=== PATIENT | female | born 1955 | race Caucasian/White ===

== ENCOUNTER → 2018-09-17 18:09 | Outpatient (CLI) | payer OTHER, SELFPAY ==
[2018-09-17 18:38] LABS: Basophils # 0.1 K/mm3 (0-0.2); Basophils % 1.1 % (0.1-2.0); Eosinophils # 0.1 K/mm3 (0.0-0.4); Eosinophils % 1.8 % (0.1-12.0); Hematocrit 49.5 % (37.0-47.0); Hemoglobin 16.1 g/dL (12.2-16.2); Lymphocytes # 2.1 K/mm3 (0.7-4.5); Lymphocytes % 32.6 % (10-50); Mean Corpuscular HGB Conc 32.5 g/dL (31.8-35.4); Mean Corpuscular Volume 98.4 fl (81-99); Mean Platelet Volume 8.2 fl (7.4-10.4); Monocytes # 0.4 K/mm3 (0.1-1.0); Monocytes % 5.4 % (1.7-9.3); Neutrophils # 3.8 K/mm3 (1.8-7.8); Neutrophils % 59.1 % (37.0-80.0); Platelet Count 216 K/mm3 (142-424); Red Blood Count 5.02 M/mm3 (4.20-5.40); Red Cell Distribution Width 12.7 % (11.5-17.5); White Blood Count 6.5 K/mm3 (4.8-10.8)
[2018-09-17 20:04] LABS: Alanine Aminotransferase 15 U/L (12-78); Albumin/Globulin Ratio 1.4 (1.1-1.8); Alkaline Phosphatase 79 U/L (46-116); Anion Gap 13.4 mEq/L (5-15); Aspartate Amino Transferase 11 U/L (15-37); Bilirubin,Total 0.5 mg/dL (0.2-1.0); Blood Urea Nitrogen 8 mg/dL (7-18); Calcium 9.2 mg/dL (8.5-10.1); Carbon Dioxide 27 mmol/L (21.0-32.0); Chloride 105 mmol/L (98-107); Chol/HDL Ratio 7.6 (1-3.5); Cholesterol 305 mg/dL (140-200); Creatinine,Serum 0.69 mg/dL (0.55-1.02); Estimated Glomerular Filt Rate 86 ml/min (>60); GFR (African American) 105 ML/MIN (>60); Globulin 2.9 gm/dl (1.3-3.2); Glucose 79 mg/dL (74-106); HDL Cholesterol 40 mg/dL (29-89); LDL Cholesterol 227 mg/dL (0-130); Potassium 4.4 mmoL/L (3.5-5.1); Sodium 141 mmol/L (136-145); T4 (Thyroxine) 8.5 ug/dl (4.7-13.3); Thyroid Stimulating Hormone 1.13 uIU/ml (0.358-3.740); Total Protein,Serum 6.9 gm/dL (6.4-8.2); Triglycerides 191 mg/dL (30-200); VLDL Cholesterol 38 mg/dL (0-40)
[2018-09-20 17:10] LABS: Vitamin D 25 Hydroxy 8.2 ng/mL (30.0-100.0)
== END ==
PROVIDERS: Visit Provider Nurse Practitioner Family
DX: Z00.00 Encounter for general adult medical examination without abnormal findings (principal)
CPT/HCPCS: 80053; 80061; 82652; 84436; 84443; 85025

== ENCOUNTER 2020-10-07 08:59 | Emergency (ER) | payer OTHER, SELFPAY ==
[2020-10-07 09:10] VITALS: BP 199/113; PULSE 76; RESP 20; TEMP 36.4; O2SAT 95; BMI 18.2
--- NOTE | 2020-10-07 09:39 | HMH.EDUTC ---
[facility] [place] Disposition Clinical Impression: Sinusitis Qualifiers: Sinusitis location: unspecified location Chronicity: acute Recurrence: non-recurrent Qualified Code(s): J01.90 - Acute sinusitis, unspecified Disposition: Home, Self-Care Condition on Discharge: Good Instructions: Sinusitis, DI for Sinusitis Additional Instructions: Drink plenty of fluids. Take tylenol for pain or fever. Return if you begin to have difficulty breathing. Follow up with your regular doctor. GO TO THE ER FOR ANY WORSENING SYMPTOMS The cough medication (promethazine dm) will make you drowsy, so don't drive or operate heavy machinery after taking it. Follow up with your primary care doctor regarding your blood pressure. Prescriptions: Promethazine/Dextromethorphan [Promethazine-Dm Syrup] 5 ml PO Q6HP PRN #240 syrup PRN Reason: Cough Transmission Status: Received by [id number] predniSONE [Prednisone 20mg Tab] 20 mg PO BID 4 Days #8 tab Transmission Status: Received by [id number] Azithromycin [Z-Filemon 250mg Tab*] 250 mg PO UD DOSE PK #6 tab Transmission Status: Received by [id number] Referrals: Keyla Biggs APRN [Primary Care Provider] - Forms: Work/School Release Time of Disposition: 09:43 Medical Decision Making - Medical Records Medical records reviewed: No: I reviewed the patient's medical records. - Aftab Inquiry Pt receiving controlled substance: No Vital Signs: 10/07/20 09:10 10/07/20 09:42 10/07/20 09:48 Temperature 97.6 F 97.6 F Temperature Source Oral Pulse Rate 76 Pulse Rate [Right Brachial] 76 Respiratory Rate 20 20 Blood Pressure 192/102 H Blood Pressure [Right Arm] 199/113 H 192/102 H Blood Pressure Mean [Right Arm] 141 132 Blood Pressure Source [Right Arm] Automatic Cuff Automatic Cuff Blood Pressure Position [Right Arm] Sitting Sitting 02 Sat by Pulse Oximetry 95 Oxygen Delivery Method Room Air [facility] [place] HPI - General Stated complaint: sinus problems Time Seen by Provider: 10/07/20 09:40 Mode of Arrival: Ambulatory Source of Information: Patient Limitations: No Limitations Description of Symptoms (Recalled from Triage Doc. by RN): [place] C/O SINUS AND HEAD PRESSURE, SNEEZING, DRAINAGE, AND EAR PAIN X 2 DAYS. RECENTLY RECEIVED SECOND DOSE OF COVID VACCINE HEENT Symptoms (Recalled from RN notes): Yes Resp Symptoms (Recalled from RN notes): No Skin Symptoms (Recalled from RN notes): No MS Symptoms (Recalled from RN notes): No Functional Status (Recalled from RN notes): WNL - History of Present Illness Provider Complaint: She states that she has been having sinus congestion, nasal drainage, post nasal drip and a cough for the past 3 days. She had her second covid vaccine on 09/27. She denies any fever/chills/body aches. She thinks that she has her normal yearly sinus infection. - Related Data Home Medications Medication Instructions Recorded Confirmed Atorvastatin Calcium [Lipitor 10mg See Rx Instructions .ROUTE .COMPLEX 10/07/20 10/07/20 Tab] Ergocalciferol (Vitamin D2) 50,000 unit PO QWEEK 10/07/20 10/07/20 [Drisdol] Previous Rx's Medication Instructions Recorded Azithromycin [Z-Filemon 250mg Tab*] 250 mg PO UD DOSE PK #6 tab 10/07/20 Promethazine/Dextromethorphan 5 ml PO Q6HP PRN #240 syrup 10/07/20 [Promethazine-Dm Syrup] predniSONE [Prednisone 20mg 20 mg PO BID 4 Days #8 tab 10/07/20 Tab] Allergies Allergy/AdvReac Type Severity Reaction Status Date / Time No Known Allergies Allergy Verified 09/17/18 13:58 - Worker's Comp Is this a Worker's Comp case?: No [facility] History - Hepatitis A Screen Drug use history?: No High risk sexual behaviors?: No History of sexually transmitted infection?: No Currently employed?: No Childcare worker?: No Do you have indoor plumbing?: Yes Do you have electricity?: Yes Attestation statement:: This patient has been screened for Hepatitis A risk factor
[2020-10-07 09:42] VITALS: BP 192/102
[2020-10-07 09:48] VITALS: BP 192/102; PULSE 76; RESP 20; TEMP 36.4; O2SAT 95
--- NOTE | 2020-10-07 09:49 | PC.NURSE ---
PATIENT ADVISED TO FOLLOW UP WITH PCP FOR ELEVATED BLOOD PRESSURE
== END 2020-10-07 09:52 | disposition home or self-care (01) ==
PROVIDERS: Emergency Provider Nurse Practitioner Family; PCP Nurse Practitioner Family
DX: J01.90 Acute sinusitis, unspecified (principal)
CPT/HCPCS: 99202; G0463

== ENCOUNTER → 2020-10-12 13:42 | Outpatient (CLI) | payer OTHER, SELFPAY ==
[2020-10-12 14:17] LABS: Chloride 104 mmol/L (98-107); Potassium 3.6 mmoL/L (3.5-5.1); Sodium 140 mmol/L (136-145)
[2020-10-12 14:19] LABS: Alanine Aminotransferase 13 U/L (12-78); Alkaline Phosphatase 74 U/L (38-126); Aspartate Amino Transferase 19 U/L (14-36); Bilirubin,Total 0.8 mg/dl (0.2-1.3); Blood Urea Nitrogen 11 mg/dl (7-17); Estimated Glomerular Filt Rate 72 ml/min (>60); GFR (African American) 88 ML/MIN (>60)
[2020-10-12 14:20] LABS: Albumin Level 4.5 g/dl (3.5-5.0); Albumin/Globulin Ratio 1.7 (1.1-1.8); Anion Gap 7.6 mEq/L (5-15); Calcium 9.7 mg/dl (8.4-10.2); Carbon Dioxide 32 mmol/L (22.0-30.0); Chol/HDL Ratio 3.2 (1-3.5); Cholesterol 201 mg/dl (140-200); Globulin 2.7 g/dL (1.3-3.2); Glucose 88 mg/dl (74-100); HDL Cholesterol 63 mg/dl (40-60); Total Protein,Serum 7.2 g/dl (6.3-8.2); Triglycerides 215 mg/dl (30-150); VLDL Cholesterol 43 mg/dL (0-40)
[2020-10-12 14:30] LABS: Basophils # 0.1 K/mm3 (0-0.2); Basophils % 1.3 % (0.1-2.0); Eosinophils # 0.2 K/mm3 (0.0-0.4); Eosinophils % 1.5 % (0.1-12.0); Hemoglobin 16.7 g/dL (12.2-16.2); Lymphocytes # 2.6 K/mm3 (0.7-4.5); Lymphocytes % 24.7 % (10-50); Mean Corpuscular HGB Conc 32.8 g/dL (31.8-35.4); Mean Corpuscular Hemoglobin 32.9 pg (27.0-31.2); Mean Corpuscular Volume 100.1 fl (81-99); Mean Platelet Volume 8.8 fl (7.4-10.4); Monocytes # 0.7 K/mm3 (0.1-1.0); Monocytes % 7.1 % (1.7-9.3); Neutrophils # 6.8 K/mm3 (1.8-7.8); Neutrophils % 65.4 % (37.0-80.0); Platelet Count 271 K/mm3 (142-424); Red Blood Count 5.09 M/mm3 (4.20-5.40); Red Cell Distribution Width 12.6 % (11.5-17.5); White Blood Count 10.4 K/mm3 (4.8-10.8)
[2020-10-12 14:31] LABS: Direct LDL Cholesterol 98.61 mg/dL (100-129)
[2020-10-12 14:37] LABS: 25-OH Vitamin D, Total 50.5 ng/mL (30-100)
[2020-10-12 14:38] LABS: Free T4 (Free Thyroxine) 1.01 ng/dl (0.78-2.19)
[2020-10-12 14:58] LABS: Thyroid Stimulating Hormone 0.91 uIU/mL (0.465-4.68)
== END ==
PROVIDERS: Visit Provider Physician Assistant
DX: I10 Essential (primary) hypertension (principal); E78.5 Hyperlipidemia, unspecified; E55.9 Vitamin D deficiency, unspecified; R53.83 Other fatigue
CPT/HCPCS: 80053; 80061; 82306; 84439; 84443; 85025

== ENCOUNTER → 2020-11-09 17:49 | Outpatient (CLI) | payer OTHER, SELFPAY ==
[2020-11-09 18:11] LABS: Basophils # 0.1 K/mm3 (0-0.2); Basophils % 1.4 % (0.1-2.0); Eosinophils # 0.2 K/mm3 (0.0-0.4); Eosinophils % 2.8 % (0.1-12.0); Hematocrit 48.3 % (37.0-47.0); Hemoglobin 15.5 g/dL (12.2-16.2); Lymphocytes # 2.1 K/mm3 (0.7-4.5); Lymphocytes % 27.4 % (10-50); Mean Corpuscular HGB Conc 32.1 g/dL (31.8-35.4); Mean Corpuscular Hemoglobin 32.7 pg (27.0-31.2); Mean Corpuscular Volume 101.8 fl (81-99); Mean Platelet Volume 8.6 fl (7.4-10.4); Monocytes # 0.6 K/mm3 (0.1-1.0); Monocytes % 7.2 % (1.7-9.3); Neutrophils # 4.7 K/mm3 (1.8-7.8); Neutrophils % 61.1 % (37.0-80.0); Platelet Count 255 K/mm3 (142-424); Red Blood Count 4.75 M/mm3 (4.20-5.40); Red Cell Distribution Width 12.8 % (11.5-17.5); White Blood Count 7.7 K/mm3 (4.8-10.8)
== END ==
PROVIDERS: Visit Provider Physician Assistant
DX: R89.9 Unspecified abnormal finding in specimens from other organs, systems and tissues (principal)
CPT/HCPCS: 85025

== ENCOUNTER → 2021-06-03 10:43 | Outpatient (CLI) | payer BC, SELFPAY | PROVIDERS: PCP Physician Assistant; Visit Provider Nurse Practitioner | DX: Z20.822 Contact with and (suspected) exposure to COVID-19 (principal) | CPT/HCPCS: C9803; U0003; U0005 ==

== ENCOUNTER → 2022-01-03 12:14 | Outpatient (CLI) | payer SELFPAY ==
[2022-01-02 18:47] LABS: Alanine Aminotransferase 13 U/L (12-78); Albumin Level 4.3 g/dl (3.5-5.0); Albumin/Globulin Ratio 1.9 (1.1-1.8); Alkaline Phosphatase 65 U/L (38-126); Anion Gap 9.7 mEq/L (5-15); Aspartate Amino Transferase 22 U/L (14-36); Bilirubin,Total 0.8 mg/dl (0.2-1.3); Blood Urea Nitrogen 10 mg/dl (7-17); Calcium 9.4 mg/dl (8.4-10.2); Carbon Dioxide 28 mmol/L (22.0-30.0); Chloride 104 mmol/L (98-107); Chol/HDL Ratio 7.1 (1-3.5); Cholesterol 307 mg/dl (140-200); Estimated Glomerular Filt Rate 100 ml/min (>60); GFR (African American) 121 ML/MIN (>60); Globulin 2.3 g/dL (1.3-3.2); Glucose 90 mg/dl (74-100); HDL Cholesterol 43 mg/dl (40-60); Potassium 3.7 mmoL/L (3.5-5.1); Sodium 138 mmol/L (136-145); Total Protein,Serum 6.6 g/dl (6.3-8.2); Triglycerides 235 mg/dl (30-150); VLDL Cholesterol 47 mg/dL (0-40)
[2022-01-02 18:54] LABS: Basophils # 0.2 K/mm3 (0-0.2); Basophils % 3.4 % (0.1-2.0); Eosinophils # 0.1 K/mm3 (0.0-0.4); Eosinophils % 2.2 % (0.1-12.0); Hematocrit 49.7 % (37.0-47.0); Hemoglobin 16.7 g/dL (12.2-16.2); Lymphocytes # 1.6 K/mm3 (0.7-4.5); Lymphocytes % 24.2 % (10-50); Mean Corpuscular HGB Conc 33.6 g/dL (31.8-35.4); Mean Corpuscular Hemoglobin 33.7 pg (27.0-31.2); Mean Corpuscular Volume 100.2 fl (81-99); Monocytes # 0.4 K/mm3 (0.1-1.0); Monocytes % 6.1 % (1.7-9.3); Neutrophils # 4.2 K/mm3 (1.8-7.8); Neutrophils % 64.1 % (37.0-80.0); Platelet Count 255 K/mm3 (142-424); Red Blood Count 4.96 M/mm3 (4.20-5.40); White Blood Count 6.5 K/mm3 (4.8-10.8)
[2022-01-02 18:59] LABS: Direct LDL Cholesterol 197.35 mg/dL (100-129)
[2022-01-02 19:04] LABS: 25-OH Vitamin D, Total 39.4 ng/mL (30-100)
[2022-01-02 19:17] LABS: Thyroid Stimulating Hormone 0.68 uIU/mL (0.465-4.68)
[2022-01-02 19:36] LABS: Vitamin B12 680 pg/mL (239-931)
== END ==
PROVIDERS: PCP Physician Assistant; Visit Provider Physician Assistant
DX: E78.5 Hyperlipidemia, unspecified (principal); R53.83 Other fatigue; E55.9 Vitamin D deficiency, unspecified
CPT/HCPCS: 80053; 80061; 82306; 82607; 84443; 85025

== ENCOUNTER → 2023-02-06 23:14 | Outpatient (CLI) | payer BC, MEDICARE, SELFPAY ==
[2023-02-06 19:11] LABS: Basophils # 0.1 K/mm3 (0-0.2); Eosinophils # 0.1 K/mm3 (0.0-0.4); Eosinophils % 1.9 % (0.1-12.0); Hematocrit 45.6 % (37.0-47.0); Hemoglobin 15.1 g/dL (12.2-16.2); Lymphocytes % 28.1 % (10-50); Mean Corpuscular HGB Conc 33.2 g/dL (31.8-35.4); Mean Corpuscular Hemoglobin 32.4 pg (27.0-31.2); Mean Corpuscular Volume 97.7 fl (81-99); Mean Platelet Volume 9.7 fl (7.4-10.4); Monocytes # 0.3 K/mm3 (0.1-1.0); Monocytes % 4.9 % (1.7-9.3); Neutrophils # 4.5 K/mm3 (1.8-7.8); Neutrophils % 64.1 % (37.0-80.0); Platelet Count 232 K/mm3 (142-424); Red Blood Count 4.67 M/mm3 (4.20-5.40); Red Cell Distribution Width 12.6 % (11.5-17.5)
[2023-02-06 20:01] LABS: Alanine Aminotransferase 18 U/L (12-78); Albumin Level 4.3 g/dl (3.5-5.0); Albumin/Globulin Ratio 1.9 (1.1-1.8); Alkaline Phosphatase 85 U/L (38-126); Anion Gap 14.3 mEq/L (5-15); Aspartate Amino Transferase 28 U/L (14-36); Bilirubin,Total 0.6 mg/dl (0.2-1.3); Blood Urea Nitrogen 10 mg/dl (7-17); Carbon Dioxide 29 mmol/L (22.0-30.0); Chloride 102 mmol/L (98-107); Chol/HDL Ratio 4.1 (1-3.5); Cholesterol 211 mg/dl (140-200); Estimated Glomerular Filt Rate 100 ml/min (>60); GFR (African American) 121 ML/MIN (>60); Globulin 2.3 g/dL (1.3-3.2); Glucose 85 mg/dl (74-100); HDL Cholesterol 52 mg/dl (40-60); Potassium 3.3 mmoL/L (3.5-5.1); Sodium 142 mmol/L (136-145); Total Protein,Serum 6.6 g/dl (6.3-8.2); Triglycerides 173 mg/dl (30-150); VLDL Cholesterol 35 mg/dL (0-40)
[2023-02-06 20:13] LABS: Direct LDL Cholesterol 117.13 mg/dL (100-129)
[2023-02-06 20:16] LABS: 25-OH Vitamin D, Total 85.3 ng/mL (30-100)
[2023-02-06 20:30] LABS: Thyroid Stimulating Hormone 0.08 uIU/mL (0.465-4.68)
== END ==
PROVIDERS: PCP Physician Assistant; Visit Provider Physician Assistant
DX: E78.5 Hyperlipidemia, unspecified (principal); I10 Essential (primary) hypertension; E55.9 Vitamin D deficiency, unspecified
CPT/HCPCS: 80053; 80061; 82306; 84443; 85025

== ENCOUNTER → 2023-02-20 14:44 | Outpatient (CLI) | payer BC, MEDICARE, SELFPAY ==
--- NOTE | 2023-02-20 14:55 | CT_ITS ---
FINAL REPORT TECHNIQUE: Axial images were obtained from the lung apex to the mid abdomen by computed tomography. This study was performed with techniques to keep radiation doses as low as reasonably achievable (ALARA). Individualized dose reduction techniques using automated exposure control or adjustment of mA and/or kV according to the patient's size were employed. CLINICAL HISTORY: lung cancer screening, smoker, 1 pk per day x 20 yrs family hx of lung cancer FINDINGS: CHEST CT LOW DOSE CTDI vol (mGy): 2.90 DLP (mGy-cm): 113.33 There is no axillary adenopathy. There is no hilar or mediastinal adenopathy. The heart is normal in size. There is no pericardial or pleural effusion. There are shun-lj-vzedegvo changes of centrilobular emphysema. There are tiny nodules in the periphery of the lungs measuring up to 3 mm, most evident in the right upper lobe. Finding is best seen on image 36 of series 4. There is a 4 mm nodule in the inferior right upper lobe well seen on image 42 of series 4. There is also 4 mm nodule in the periphery of the left base well seen on image 79 of series 4. Limited images of the upper abdomen are unremarkable. IMPRESSION: Pulmonary nodules as above. Lung RADS category 2. Recommend 12 month follow-up low-dose chest CT. Reviewed, Interpreted and Dictated by Ar Sin MD Transcribed by Kae Osorio Authenticated and [facility]
--- NOTE | 2023-02-20 15:06 | MM_ITS ---
PROCEDURE INFORMATION: Exam: MG Bilateral Screening 3D Mammography Exam date and time: 02/20/2023 3:07 PM Age: 67 years old Clinical indication: Screening examination TECHNIQUE: Imaging protocol: Bilateral Screening tomosynthesis and 2D mammography including computer-aided detection (CAD) when performed. COMPARISON: No relevant prior studies available. FINDINGS: MAMMOGRAPHY: Breast composition: The breasts are heterogeneously dense, which may obscure small masses. Mass: None. Architectural distortion: None. Calcifications: No suspicious calcifications. Asymmetric density: None. Skin thickening: None. Axillary adenopathy: None. IMPRESSION: No mammographic evidence of malignancy. Annual screening is recommended unless otherwise clinically indicated. ASSESSMENT: BI-RADS Category 1: Negative
[2023-02-20 17:36] LABS: Anion Gap 15.4 mEq/L (5-15); Blood Urea Nitrogen 10 mg/dl (7-17); Calcium 9.2 mg/dl (8.4-10.2); Carbon Dioxide 28 mmol/L (22.0-30.0); Chloride 101 mmol/L (98-107); Estimated Glomerular Filt Rate 84 ml/min (>60); GFR (African American) 101 ML/MIN (>60); Glucose 74 mg/dl (74-100); Potassium 3.4 mmoL/L (3.5-5.1); Sodium 141 mmol/L (136-145)
[2023-02-20 18:07] LABS: Thyroid Stimulating Hormone 0.02 uIU/mL (0.465-4.68)
== END ==
PROVIDERS: PCP Physician Assistant; Visit Provider Physician Assistant
DX: E78.5 Hyperlipidemia, unspecified (principal); E87.6 Hypokalemia; Z87.891 Personal history of nicotine dependence; Z12.31 Encounter for screening mammogram for malignant neoplasm of breast; Z12.2 Encounter for screening for malignant neoplasm of respiratory organs
CPT/HCPCS: 36415; 71271; 77063; 77067; 80048; 84443

== ENCOUNTER → 2023-03-08 19:25 | Outpatient (CLI) | payer BC, MEDICARE, SELFPAY ==
[2023-03-08 21:21] LABS: Free Thyroxine Index 2.2 ug/dL (5.93-13.13); T4 (Thyroxine) 8.1 ug/dl (5.53-11.0); Triiodothryronine (T3) Uptake 27 % (23.5-40.5)
[2023-03-08 21:35] LABS: Thyroid Stimulating Hormone 0.04 uIU/mL (0.465-4.68)
[2023-03-10 10:12] LABS: Thyroid Peroxidase Antibodies 17 IU/mL (0-34)
[2023-03-13 17:53] LABS: Thyroid Stimulating Immunoglob <0.10 IU/L (0.00-0.55)
== END ==
LOC: LAB.DROPOF 19:29
PROVIDERS: PCP Physician Assistant; Visit Provider Physician Assistant
DX: R79.89 Other specified abnormal findings of blood chemistry (principal)
CPT/HCPCS: 84436; 84443; 84445; 84479; 86376

== ENCOUNTER → 2023-03-13 14:12 | Outpatient (CLI) | payer BC, MEDICARE, SELFPAY ==
--- NOTE | 2023-03-13 14:12 | US_ITS ---
FINAL REPORT TECHNIQUE: Sonographic images of the thyroid were obtained. CLINICAL HISTORY: Low TSH FINDINGS: US THYROID/HEAD OR NECK SOFT TISSUE Multiple thyroid nodules are seen. The thyroid has an heterogeneous echotexture. Several nodules have been chosen for measurements. The right lobe of the thyroid measures 4.6 x 1.6 x 1.8 cm. There is a solid, hypoechoic nodule measuring 9 x 7 x 4 mm consistent with TI-RADS category 4. There is a solid, hypoechoic nodule measuring 9 x 8 x 7 mm consistent with TI-RADS category 4. There is a 3rd nodule which is solid and isoechoic measuring 12 x 10 x 6 mm consistent with TI-RADS category 3. The left lobe of the thyroid measures 4.9 x 1.7 x 2.0 cm. Solid, isoechoic nodule measuring 25 x 19 x 14 mm consistent with TI-RADS category 3. The isthmus measures 0.24 cm. IMPRESSION: Multiple thyroid nodules as detailed above. Recommend ultrasound-guided biopsy of the dominant nodule on the left. Reviewed, Interpreted and Dictated by Sedrick Phillips III, MD Transcribed by Kae Osorio Authenticated and [facility]
== END ==
LOC: RAD 14:12
PROVIDERS: PCP Physician Assistant; Visit Provider Physician Assistant
DX: R79.89 Other specified abnormal findings of blood chemistry (principal)
CPT/HCPCS: 76536

== ENCOUNTER → 2023-03-26 08:44 | Outpatient (CLI) | payer BC, MEDICARE, SELFPAY ==
--- NOTE | 2023-03-26 08:44 | US_ITS ---
FINAL REPORT CLINICAL HISTORY: LEFT thyroid FNA -- Herrera IZQUIERDO FINDINGS: ULTRASOUND GUIDED THYROID BIOPSY HISTORY: Left thyroid mass. TECHNIQUE: Informed consent was obtained from the patient. A timeout procedure was performed prior to beginning. Limited sonographic evaluation of thyroid gland was performed to localize lesion of interest. The neck was prepped in a routine sterile fashion and locally anesthetized with 1% lidocaine. FNA was performed with 25-gauge needle under direct sonographic visualization. 4 passes were made. Cytology is pending. Procedure was well tolerated. CONCLUSION: 1. Technically successful thyroid fine needle aspiration of a left thyroid mass. Reviewed, Interpreted and Dictated by Cassius Purvis MD Transcribed by Bryanna Worley PA-C Authenticated and [facility]
== END ==
PROVIDERS: PCP Physician Assistant; Visit Provider Physician Assistant
DX: E07.9 Disorder of thyroid, unspecified (principal)
CPT/HCPCS: 10005; 76536

== ENCOUNTER → 2023-04-17 07:54 | Outpatient (CLI) | payer BC, MEDICARE, SELFPAY ==
--- NOTE | 2023-04-17 08:00 | US_ITS ---
FINAL REPORT CLINICAL HISTORY: .repeat lt thyroid-- christin amor-- FINDINGS: Ultrasound guided thyroid biopsy. HISTORY: Thyroid mass. PROCEDURE: After informed consent was obtained and a time-out was performed, the patient was prepped and draped in usual sterile fashion over the anterior neck. Utilizing local anesthesia and sterile technique with a 25-gauge needle, access to the lesion was obtained. Four passes were made. An additional 2 passes were made and placed into thyro-seek.The patient received no conscious sedation. The patient tolerated procedure well and left the department in good condition. IMPRESSION: Status post ultrasound guided biopsy of a thyroid nodule without immediate complication. Films reviewed , interpreted and dictated by Dr. Phillips Transcribed by Christin Rg PA-C. Reviewed, Interpreted and Dictated by Sedrick Phillips III, MD Transcribed by FELECIA Mullins Authenticated and [facility]
== END ==
PROVIDERS: PCP Physician Assistant; Visit Provider Physician Assistant
DX: E07.9 Disorder of thyroid, unspecified (principal)
CPT/HCPCS: 10005; 76536

== ENCOUNTER → 2023-05-30 23:18 | Outpatient (CLI) | payer BC, MEDICARE, SELFPAY ==
[2023-05-30 19:12] LABS: Adenovirus,PCR Not Detected (NotDetected); Bordetella Pertussis Not Detected (NotDetected); Chlamydophila Pneumoniae, PCR Not Detected (NotDetected); Coronavirus 19, PCR Not Detected (NotDetected); Coronavirus 229E Not Detected (NotDetected); Coronavirus NL63 Not Detected (NotDetected); Coronavirus OC43 Not Detected (NotDetected); Coronovirus HKU1,PCR Not Detected (NotDetected); Human Metapneumovirus Not Detected (NotDetected); Influenza A, PCR Not Detected (NotDetected); Influenza AH1, 2009 Not Detected (NotDetected); Influenza AH1, PCR Not Detected (NotDetected); Influenza AH3,PCR Not Detected (NotDetected); Influenza B, PCR Not Detected (NotDetected); Mycoplasma Pneumoniae, PCR Not Detected (NotDetected); Parainfluenza 1, PCR Not Detected (NotDetected); Parainfluenza 2, PCR Not Detected (NotDetected); Parainfluenza 3, PCR Not Detected (NotDetected); Parainfluenza 4, PCR Not Detected (NotDetected); Respiratory Syncytial Virus Not Detected (NotDetected); Rhinovirus/Enterovirus Not Detected (NotDetected)
[2023-05-30 19:33] LABS: Basophils # 0.1 K/mm3 (0-0.2); Basophils % 0.7 % (0.1-2.0); Eosinophils # 0.1 K/mm3 (0.0-0.4); Hematocrit 47.1 % (37.0-47.0); Hemoglobin 15.4 g/dL (12.2-16.2); Lymphocytes # 2.1 K/mm3 (0.7-4.5); Lymphocytes % 19.5 % (10-50); Mean Corpuscular HGB Conc 32.6 g/dL (31.8-35.4); Mean Corpuscular Hemoglobin 32.1 pg (27.0-31.2); Mean Corpuscular Volume 98.6 fl (81-99); Mean Platelet Volume 9.6 fl (7.4-10.4); Monocytes # 0.6 K/mm3 (0.1-1.0); Monocytes % 5.8 % (1.7-9.3); Neutrophils # 7.8 K/mm3 (1.8-7.8); Platelet Count 312 K/mm3 (142-424); Red Blood Count 4.78 M/mm3 (4.20-5.40); Red Cell Distribution Width 12.7 % (11.5-17.5); White Blood Count 10.7 K/mm3 (4.8-10.8)
[2023-05-30 19:35] LABS: Chloride 106 mmol/L (98-107); Potassium 3.7 mmoL/L (3.5-5.1); Sodium 142 mmol/L (136-145)
[2023-05-30 19:37] LABS: Alanine Aminotransferase 24 U/L (12-78); Alkaline Phosphatase 84 U/L (38-126); Aspartate Amino Transferase 27 U/L (14-36); Bilirubin,Total 0.5 mg/dl (0.2-1.3); Blood Urea Nitrogen 8 mg/dl (7-17); Estimated Glomerular Filt Rate 100 ml/min (>60); GFR (African American) 121 ML/MIN (>60)
[2023-05-30 19:38] LABS: Albumin Level 3.9 g/dl (3.5-5.0); Albumin/Globulin Ratio 1.6 (1.1-1.8); Anion Gap 13.7 mEq/L (5-15); Carbon Dioxide 26 mmol/L (22.0-30.0); Globulin 2.5 g/dL (1.3-3.2); Total Protein,Serum 6.4 g/dl (6.3-8.2)
[2023-05-30 20:00] LABS: Glucose 50 mg/dl (74-100)
[2023-05-30 20:15] LABS: Free T4 (Free Thyroxine) 0.88 ng/dl (0.78-2.19)
[2023-05-30 20:29] LABS: Thyroid Stimulating Hormone 0.09 uIU/mL (0.465-4.68)
== END ==
LOC: LAB.DROPOF 23:18
PROVIDERS: Nurse Practitioner; PCP Physician Assistant; Visit Provider Internal Medicine
DX: Z20.828 Contact with and (suspected) exposure to other viral communicable diseases (principal); R06.02 Shortness of breath; E05.90 Thyrotoxicosis, unspecified without thyrotoxic crisis or storm
CPT/HCPCS: 80053; 84439; 84443; 85025; 87581; 87632; 87798

== ENCOUNTER → 2023-06-12 14:13 | Outpatient (CLI) | payer BC, MEDICARE, SELFPAY ==
--- NOTE | 2023-06-12 14:17 | CT_ITS ---
FINAL REPORT TECHNIQUE: Thin section axial CT images with coronal and sagittal reformats were performed through the neck. This study was performed with techniques to keep radiation doses as low as reasonably achievable (ALARA). Individualized dose reduction techniques using automated exposure control or adjustment of mA and/or kV according to the patient''s size were employed. CLINICAL HISTORY: Enlarged lymph nodes left side FINDINGS: No adenopathy or mass lesion is present . Salivary glands are normal. Larynx is unremarkable. The thyroid gland is enlarged with bilateral thyroid nodules which are larger on the left. Mild bilateral carotid artery calcifications are seen. There are degenerative changes in the cervical spine. Limited images of the lung apices show mild emphysema and mild scarring. IMPRESSION: No acute process. Reviewed, Interpreted and Dictated by Sedrick Phillips III, MD Transcribed by Yara Odell Authenticated and [facility]
[2023-06-12 17:29] LABS: Free T4 (Free Thyroxine) 1.09 ng/dl (0.78-2.19)
[2023-06-12 17:43] LABS: Thyroid Stimulating Hormone 0.02 uIU/mL (0.465-4.68)
== END ==
PROVIDERS: PCP Physician Assistant; Visit Provider Nurse Practitioner
DX: E05.90 Thyrotoxicosis, unspecified without thyrotoxic crisis or storm (principal); R59.9 Enlarged lymph nodes, unspecified; H92.02 Otalgia, left ear
CPT/HCPCS: 36415; 70490; 84439; 84443

== ENCOUNTER 2023-11-09 19:56 | Outpatient (CLI) | payer MEDICARE, SELFPAY ==
[2023-11-09 18:28] LABS: Coronavirus 19, PCR Not Detected (NotDetected); Influenza A, PCR Not Detected (NotDetected); Influenza B, PCR Not Detected (NotDetected)
== END 2023-11-09 23:59 ==
LOC: LAB.DROPOF 19:57
PROVIDERS: PCP Family Medicine; Visit Provider Family Medicine
DX: R05.9 Cough, unspecified (principal); R51.9 Headache, unspecified; R09.89 Other specified symptoms and signs involving the circulatory and respiratory systems
CPT/HCPCS: 87636

== ENCOUNTER 2024-02-28 09:33 | Outpatient (CLI) | payer MEDICARE, SELFPAY | END 2024-02-28 23:59 | disposition home or self-care (01) | LOC: LAB.DROPOF 02-29 09:33 | PROVIDERS: PCP Family Medicine; Visit Provider Family Medicine | DX: J02.9 Acute pharyngitis, unspecified (principal) | CPT/HCPCS: 87070 ==

== ENCOUNTER 2024-04-09 12:31 | Emergency (ER) | payer MEDICARE, SELFPAY ==
[2024-04-09 12:40] VITALS: BP 121/74; PULSE 71; RESP 20; TEMP 36.4; O2SAT 94; BMI 19.7
--- NOTE | 2024-04-09 12:53 | ED_ITS ---
Discharge Plan Disposition Patient Disposition: Home, Self-Care Condition: Good Prescriptions Prescriptions: New amoxicillin-pot clavulanate 875-125 mg Tablet 1 tab PO Q12H 7 Days Qty: 14 0RF methylprednisolone [Medrol (Filemon)] 4 mg tablets,dose pack See Rx Instructions .Route .COMPLEX 6 Days Qty: 21 0RF Rx Instructions: taper pack; benzonatate 100 mg capsule 100 mg PO TID PRN (Reason: cough) Qty: 15 0RF No Action atorvastatin 40 mg tablet 40 mg PO DAILY amlodipine 10 mg tablet 10 mg PO DAILY paroxetine HCl 30 mg tablet 30 mg PO DAILY Patient Comments: TAKE 1 TABLET BY MOUTH ONCE DAILY losartan 100 mg tablet 100 mg PO DAILY Patient Comments: TAKE 1 TABLET BY MOUTH ONCE DAILY mirabegron [Myrbetriq] 50 mg tablet extended release 24 hr 50 mg PO DAILY Patient Comments: TAKE 1 TABLET BY MOUTH ONCE DAILY Referrals Follow up/Referrals: Susie Goodman APRN [Primary Care Provider] - See instructions Activity Restrictions/Add. Instructions Additional Instructions/Restrictions: *Monitor Temp, Over the counter Motrin or Tylenol as directed/as needed Tylenol every 4 hours and Motrin every 6 hours (as long as your family doctor has told you that you can take it) for fever or pain. and straight to ER if unable to lower temp less than 101.0 after medication given *Warm salt water gargles may help to soothe the throat *Throat Lozenges? *Warm fluids like tea with honey may help to soothe the throat? *Sleep elevated *Humidifier/Vaporizer Your throat swab was sent for culture. Those results are typically sent to your primary care. Be sure to follow up in 2-3 days with your family doctor/primary care physician if no improvement so they can review those result and treat if necessary. If you don?t have a primary care doctor, I recommend you get one but in the mean time, you will have to return to a walk in clinic Follow up IMMEDIATELY for new or worsening symptoms or no Noticeable improvement over the next 48-72 hours. 911 for difficulty breathing or swallowing Clinical Impressions Clinical Impression: Sinus pressure Instructions Patient Instructions: DI for Sinusitis, Sinusitis Print Language Print Language: Portuguese Discharge ED Provider: Jewell Duque [facility] [place] HPI General Stated complaint: congestion, sore throat, headache Mode of Arrival: Ambulatory Source of Information: Patient Limitations: No Limitations Time Seen by Provider: 04/09/24 12:54 Description of Symptoms (Recalled from Triage Doc. by RN): PATIENT C/O COUGH, HEADACHE, AND SORE THROAT SINCE YESTERDAY MORNING HEENT Symptoms (Recalled from RN notes): Yes Resp Symptoms (Recalled from RN notes): Yes Skin Symptoms (Recalled from RN notes): No MS Symptoms (Recalled from RN notes): No Functional Status (Recalled from RN notes): WNL History of Present Illness Provider Complaint: Patient states that she started feeling bad with sinus congestion and pressure then yesterday her throat started bothering her and hurting really bad States today she wasnt feeling any better so she came in to get checked worried that she may have strep throat Related Data Home Medications ?Medication ?Instructions ?Recorded ?Confirmed amlodipine 10 mg tablet 10 mg PO DAILY 04/09/24 04/09/24 atorvastatin 40 mg tablet 40 mg PO DAILY 04/09/24 04/09/24 losartan 100 mg tablet 100 mg PO DAILY 04/09/24 04/09/24 mirabegron 50 mg tablet,extended 50 mg PO DAILY 04/09/24 04/09/24 release 24 hr (Myrbetriq) paroxetine HCl 30 mg tablet 30 mg PO DAILY 04/09/24 04/09/24 Previous Rx's ?Medication ?Instructions ?Recorded amoxicillin 875 mg-potassium 1 tab PO Q12H 7 days #14 tabs 04/09/24 clavulanate 125 mg tablet benzonatate 100 mg capsule 100 mg PO TID PRN cough #15 caps 04/09/24 methylprednisolone 4 mg tablets in See Rx Instructions .Route 04/09/24 a dose pack (Medrol (Filemon)) .COMPLEX 6 days #21 tabs Allergies Allergy/AdvReac Type Severity Reaction Status Date / Time lisinopril AdvReac Intermediate cough Verified 02/28/24 10:34 Worker's Comp Is this a Worker's Comp case?: No [facility] Disclaimer: The information contained in this section may have been updated after the patient was seen, as this information can be updated by other users. Medical History Sinus pressure Acute left otitis media Tympanosclerosis, bilateral Tobacco abuse We will continue to dependency counselor Kae to quit and have offered any help we can give to achieve this goal. Hyperthyroidism Swollen lymph nodes Otalgia of left ear Bilateral otitis media Depression Hypertension Today's BP was 116/76. Continue current Rx. Vitamin D deficiency Patient on replacement therapy. Social History Smoking Status: Current every day smoker tobacco type: cigarettes packs per day: 1 alcohol intake: never substance use type: denies use current occupational status: other Travel in the last 8 weeks: None ROS Obtained: Yes All systems reviewed & no additional complaints except as documented and Yes Systems reviewed as appropriate & no additional complaints except as documented Constitutional Constitutional: Reports system reviewed and no additional complaints, except as documented, Reports as per HPI and Reports headache(s) Eyes Eyes: Reports system reviewed and no additional complaints, except as documented and Reports as per HPI ENT Ears, Nose, Mouth, and Throat: Reports system reviewed and no additional complaints, except as documented, Reports as per HPI, Reports otalgia, Reports headache(s), Reports sinus pain, Reports sinus pressure and Reports sore throat Cardiovascular Cardiovascular: Reports system reviewed and no additional complaints, except as documented and Reports as per HPI Respiratory Respiratory: Reports system reviewed and no additional complaints, except as documented, Reports as per HPI, Denies shortness of breath and Reports cough Gastrointestinal Gastrointestingal: Reports system reviewed and no additional complaints, except as documented and as per HPI Neurologic Neurologic: Reports headache(s) Physical Exam General General appearance: alert and in no apparent distress ENT ENT exam: Present mucous membranes moist Expanded ENT Exam TM/Canal exam: Bilateral TM: bulging Nose exam: Present sinus tenderness Throat exam: Present other (Pharyngeal erythema noted with PND) Respiratory Respiratory exam: Present normal lung sounds bilaterally; Absent respiratory distress Cardiovascular Cardiovascular exam: Present regular rate, normal rhythm and normal heart sounds Abdominal Exam Abdominal exam: Present soft and normal bowel sounds; Absent distention or tenderness Neurological Exam Neurological exam: Present alert, oriented X3 and normal gait Medical Decision Making Aftab Inquiry Pt receiving controlled substance: No Aftab was queried for this patient: No Vital Signs: 04/09/24 12:40 Temperature 97.6 F Temperature Source Oral Pulse Rate [Left Brachial] 71 Respiratory Rate 20 Blood Pressure [Left Arm] 121/74 Blood Pressure Mean [Left Arm] 89 Blood Pressure Source [Left Arm] Automatic Cuff Blood Pressure Position [Left Arm] Sitting 02 Sat by Pulse Oximetry 94 L Oxygen Delivery Method Room Air Lab Data Lab results reviewed: Yes I reviewed the patient's lab results.
[2024-04-09 12:56] LABS: UTC Strep Screen (Rapid) Negative (Negative)
[2024-04-09 13:04] VITALS: BP 121/74; PULSE 71; RESP 20; TEMP 36.4; O2SAT 94
== END 2024-04-09 13:07 | disposition home or self-care (01) ==
PROVIDERS: Emergency Provider Nurse Practitioner; PCP Family Medicine
DX: J01.90 Acute sinusitis, unspecified (principal); R51.9 Headache, unspecified; R07.0 Pain in throat
CPT/HCPCS: 87880; 99204; 99212; G0463

== ENCOUNTER 2024-06-11 09:47 | Outpatient (CLI) | payer MEDICARE, SELFPAY ==
[2024-06-11 18:16] LABS: Influenza A, PCR Not Detected (NotDetected); Influenza B, PCR Not Detected (NotDetected)
[2024-06-11 18:55] LABS: Basophils # 0.1 K/mm3 (0-0.2); Basophils % 2.2 % (0.1-2.0); Eosinophils % 0.9 % (0.1-12.0); Hemoglobin 16.7 g/dL (12.2-16.2); Lymphocytes % 20.9 % (10-50); Mean Corpuscular HGB Conc 33.3 g/dL (31.8-35.4); Mean Corpuscular Hemoglobin 32.7 pg (27.0-31.2); Mean Corpuscular Volume 98.2 fl (81-99); Monocytes # 0.5 K/mm3 (0.1-1.0); Monocytes % 10.7 % (1.7-9.3); Neutrophils # 3.1 K/mm3 (1.8-7.8); Neutrophils % 65.4 % (37.0-80.0); Platelet Count 191 K/mm3 (142-424); Red Blood Count 5.09 M/mm3 (4.20-5.40); White Blood Count 4.8 K/mm3 (4.8-10.8)
[2024-06-11 19:27] LABS: Alanine Aminotransferase 17 U/L (12-78); Albumin Level 4.2 g/dl (3.5-5.0); Albumin/Globulin Ratio 1.8 (1.1-1.8); Alkaline Phosphatase 79 U/L (38-126); Anion Gap 4.5 mEq/L (5-15); Aspartate Amino Transferase 29 U/L (14-36); Bilirubin,Total 0.7 mg/dl (0.2-1.3); Blood Urea Nitrogen 6 mg/dl (7-17); Calcium 9.1 mg/dl (8.4-10.2); Carbon Dioxide 28 mmol/L (22.0-30.0); Chloride 107 mmol/L (98-107); Chol/HDL Ratio 6.1 (1-3.5); Cholesterol 270 mg/dl (140-200); Estimated Glomerular Filt Rate 83 ml/min (>60); GFR (African American) 101 ML/MIN (>60); Globulin 2.4 g/dL (1.3-3.2); Glucose 79 mg/dl (74-100); HDL Cholesterol 44 mg/dl (40-60); Potassium 3.5 mmoL/L (3.5-5.1); Sodium 136 mmol/L (136-145); Total Protein,Serum 6.6 g/dl (6.3-8.2); Triglycerides 205 mg/dl (30-150); VLDL Cholesterol 41 mg/dL (0-40)
[2024-06-11 19:30] LABS: Free Thyroxine Index 2.4 ug/dL (5.93-13.13); T4 (Thyroxine) 9.5 ug/dl (5.53-11.0); Triiodothryronine (T3) Uptake 25 % (23.5-40.5)
[2024-06-11 19:33] LABS: 25-OH Vitamin D, Total 59.7 ng/mL (30-100)
[2024-06-11 19:39] LABS: Direct LDL Cholesterol 172.69 mg/dL (100-129)
[2024-06-11 19:44] LABS: Thyroid Stimulating Hormone 0.54 uIU/mL (0.465-4.68)
[2024-06-11 20:21] LABS: Coronavirus 19, PCR Detected (NotDetected)
== END 2024-06-11 23:59 | disposition home or self-care (01) ==
LOC: LAB.DROPOF 06-12 09:48
PROVIDERS: PCP Family Medicine; Visit Provider Family Medicine
DX: E05.90 Thyrotoxicosis, unspecified without thyrotoxic crisis or storm (principal); E55.9 Vitamin D deficiency, unspecified; Z20.822 Contact with and (suspected) exposure to COVID-19; R05.8 Other specified cough; E78.5 Hyperlipidemia, unspecified
CPT/HCPCS: 80053; 80061; 82306; 84436; 84443; 84479; 85025; 87636

== ENCOUNTER 2025-04-30 06:49 | Outpatient (CLI) | payer MEDICARE, SELFPAY ==
--- NOTE | 2025-04-30 07:00 | CT_ITS ---
FINAL REPORT TECHNIQUE: Thin section axial images were obtained through the lungs using a low-dose technique per lung cancer screening protocol. Reconstruction images were obtained using the axial data. Exam was performed using dose reduction technique. CLINICAL HISTORY: lung cancer screening 1 ppd x 20 years COMPARISON: 02/20/2023 FINDINGS: CTDLvol: 2.90 DLP: 103.68 Current smoker 20 pack year history Lungs: There is evidence of prior granulomatous disease. Changes of emphysema are noted. There is a tiny subpleural left upper lobe nodule on series 4 image 30 which is stable. Several additional bilateral noncalcified subpleural nodules are noted, many of which are unchanged from prior exam. However, there is a new spiculated mass in the right lower lobe measuring 30 x 25 x 25 mm. 2 nodules along the right minor fissure are unchanged and likely intrafissural lymph nodes. Lymph nodes: There is no axillary lymphadenopathy. A precarinal lymph node measuring 19 mm was 19 mm. No additional lymphadenopathy seen. The thyroid gland is enlarged and a likely dominant left thyroid nodule is stable. Mediastinum: Heart size is normal. Prominent coronary artery calcifications. Pleura/pericardium: No pleural or pericardial effusion. Other: No acute abnormality in the upper abdomen. IMPRESSION: Right lower lobe mass. Lung RADS: 4B Recommendation: PET/CT and tissue sampling recommended per Fleischner criteria Reviewed, Interpreted and Dictated by Isaura Jara MD Transcribed by Adele Mao Authenticated and [facility]
--- NOTE | 2025-04-30 07:30 | CT_ITS ---
FINAL REPORT TECHNIQUE: Thin section axial images were obtained through the paranasal sinuses without contrast. Reconstruction images were obtained from the axial data. Exam was performed using dose reduction techniques such as automated exposure control, adjustment of the mA and kV according to patient size, and use of iterative reconstruction technique. CLINICAL HISTORY: Chronic sinusitis COMPARISON: None FINDINGS: The paranasal sinuses are clear except for small mucous retention cyst or polyp in the right sphenoid. There is no air-fluid level or significant mucosal thickening. The maxillary infundibulum are patent bilaterally. There is no significant nasal septal deviation. Left mastoid air cells are clear. Right mastoid air cells are underpneumatized. There is no acute osseous abnormality. Remaining soft tissues are unremarkable. IMPRESSION: Mucous retention cyst or polyp in the right sphenoid. Reviewed, Interpreted and Dictated by Isaura Jara MD Transcribed by Adele Mao Authenticated and . [facility]
--- NOTE | 2025-04-30 08:00 | US_ITS ---
FINAL REPORT TECHNIQUE: Sonographic images of the thyroid gland were obtained in the longitudinal and transverse planes. CLINICAL HISTORY: 1 year f/u bilateral thyroid nodules COMPARISON: 03/13/2023 FINDINGS: The right lobe measures 2.1 x 4.8 x 2.3 cm. Multiple hypoechoic nodules. Right upper lobe TR4 nodule has increased in size now measuring 12 mm and was 9 mm. Right lower lobe TR 3 nodule is increased to 15 mm and was 12 mm. Other nodules are grossly stable. The left lobe measures 2.1 x 5.0 x 1.9 cm. Large mixed cystic and solid nodule in the mid gland measures 28 mm and was 25 mm. When comparing imaging, however, today's measurement appears to extend beyond the nodule. Other nodules appear stable. The isthmus measures 3 mm. This is normal. IMPRESSION: Enlarged thyroid with multiple bilateral thyroid nodules, some of which have increased in size. Favor multinodular goiter. Consider biopsy of enlarging right thyroid nodules Reviewed, Interpreted and Dictated by Isaura Jara MD Transcribed by Adele Mao Authenticated and [facility]
[2025-04-30 09:09] LABS: Free T4 (Free Thyroxine) 1.08 ng/dl (0.78-2.19)
[2025-04-30 09:25] LABS: Thyroid Stimulating Hormone 0.69 uIU/mL (0.465-4.68)
== END 2025-04-30 23:59 | disposition home or self-care (01) ==
LOC: RAD 06:50
PROVIDERS: PCP Family Medicine; Visit Provider Nurse Practitioner
DX: E04.2 Nontoxic multinodular goiter (principal); J32.9 Chronic sinusitis, unspecified; R93.0 Abnormal findings on diagnostic imaging of skull and head, not elsewhere classified; R91.8 Other nonspecific abnormal finding of lung field; R91.1 Solitary pulmonary nodule; Z12.2 Encounter for screening for malignant neoplasm of respiratory organs; F17.210 Nicotine dependence, cigarettes, uncomplicated
CPT/HCPCS: 36415; 70486; 71271; 76536; 84439; 84443

== ENCOUNTER 2025-05-08 08:54 | Outpatient (CLI) | payer MEDICARE, SELFPAY ==
--- NOTE | 2025-05-08 10:00 | US_ITS ---
FINAL REPORT CLINICAL HISTORY: RT THYROID NODULE -- RT THYROID FNA -- NORMA IZQUIERDO FINDINGS: ULTRASOUND GUIDED THYROID BIOPSY HISTORY: Right thyroid nodule/mass. TECHNIQUE: Informed consent was obtained from the patient. Timeout procedure was performed prior to beginning. Limited sonographic evaluation of thyroid gland was performed to localize lesion of interest. The neck was prepped in a routine sterile fashion and locally anesthetized with 1% lidocaine. FNA was performed with 25-gauge needle under direct sonographic visualization. 4 passes were made. Following the first pass, note was made of some intra-thyroid hemorrhage. This distorted the thyroid architecture and made it very difficult to discern the exact margins of the nodule. The patient stated that she was on anticoagulation therapy, but was unsure of the exact medication. She had held this for 2 days prior to the procedure. Cytology is pending. Procedure was well tolerated and the patient left the department in good condition. CONCLUSION: 1. Technically successful thyroid fine needle aspiration. The procedure was complicated by a small amount of intrathyroid hemorrhage after the first pass. This made the procedure technically difficult. Reviewed, Interpreted and Dictated by Isaura Jara MD Transcribed by Bryanna Worley PA-C Authenticated and [facility]
== END 2025-05-08 23:59 | disposition home or self-care (01) ==
LOC: RAD 08:55
PROVIDERS: PCP Family Medicine; Visit Provider Nurse Practitioner
DX: E36.01 Intraoperative hemorrhage and hematoma of an endocrine system organ or structure complicating an endocrine system procedure (principal); E04.2 Nontoxic multinodular goiter
CPT/HCPCS: 10005

== ENCOUNTER 2025-05-14 10:22 | Outpatient (CLI) | payer MEDICARE, SELFPAY ==
[2025-05-12 08:54] VITALS: BMI 19.7
--- NOTE | 2025-05-14 10:34 | ECG_ITS ---
APPROVED REPORT Exam: Resting ECG HR:78 bpm ECG Measurements Heart Rate 78 AXES CA 167 P 73 QRSd 96 QRS -44 QT 400 T 58 QTc 433 Conclusion SINUS RHYTHM LEFT ATRIAL Abnormality LEFT AXIS DEVIATION [QRS AXIS < -30] ABNORMAL ECG UNCONFIRMED REPORT Electronically signed by : Trae Harris MD 05/16/2025 08:55:39
[2025-05-14 11:00] LABS: Hematocrit 44.3 % (37.0-47.0); Hemoglobin 14.8 g/dL (12.2-16.2); Immature Granulocytes % 0.1 %; Mean Corpuscular HGB Conc 33.4 g/dL (31.8-35.4); Mean Corpuscular Hemoglobin 31.9 pg (27.0-31.2); Mean Corpuscular Volume 95.5 fl (81-99); Nucleated Red Blood Cells % 0 %; Platelet Count 263 K/mm3 (142-424); Red Blood Count 4.64 M/mm3 (4.20-5.40); Red Cell Distribution Width-SD 44.1 fL; White Blood Count 7.1 K/mm3 (4.8-10.8)
[2025-05-14 11:09] LABS: Chloride 109 mmol/L (98-107); Potassium 3.6 mmoL/L (3.5-5.1); Sodium 142 mmol/L (136-145)
[2025-05-14 11:12] LABS: Anion Gap 8.6 mEq/L (5-15); Blood Urea Nitrogen 7 mg/dl (7-17); Carbon Dioxide 28 mmol/L (22.0-30.0); Creatinine Clearance Estimated 44 mL/min (50-200); Creatinine,Serum 0.60 mg/dl (0.52-1.04); Estimated Glomerular Filt Rate 99 ml/min (>60); GFR (African American) 120 ML/MIN (>60)
[2025-05-14 11:13] LABS: Calcium 9.4 mg/dl (8.4-10.2); Glucose 83 mg/dl (74-100)
== END 2025-05-14 23:59 | disposition home or self-care (01) ==
LOC: PREOP 10:23
PROVIDERS: PCP Family Medicine; Visit Provider Internal Medicine Pulmonary Disease
DX: Z01.810 Encounter for preprocedural cardiovascular examination (principal); Z01.812 Encounter for preprocedural laboratory examination; R94.31 Abnormal electrocardiogram [ECG] [EKG]
CPT/HCPCS: 80048; 85025; 93005

== ENCOUNTER 2025-05-15 09:54 | Day surgery (SDC) | payer MEDICARE, SELFPAY ==
--- NOTE | 2025-05-12 13:01 | SUR.PREOP ---
Pt no-show for PAT appointment both on 05/11 and 05/12. Spoke w/ pt's family on 05/11 who states pt came to appointment but was told her surgery was approved and she did not need to be here. Spoke w/ registration, specialty clinic and ER registration, all denying they saw pt. Apologized to pt's family and requested she come for PAT appointment on 05/12 at 10:30. Offered to give my number to family in case she needed direction on where to check in. Family stated that they were working and could not write down number. On 05/12 pt again was a no-show. Attempted to call pt/family - no answer. Unable to leave . Dr. Barton's office notified on both 05/11 and 05/12.
[2025-05-14 11:27] VITALS: BMI 19.7
[2025-05-15] VITALS (12 sets, daily range): BP systolic 116–168; BP diastolic 47–96; PULSE 68–86; RESP 14–20; TEMP 36.2–36.6; O2SAT 90–96
[2025-05-15] MEDS: LACTATED RINGERS 1000ML 1,000 ML 25 ML IV (10:27)
--- NOTE | 2025-05-15 10:47 | P.PNANES_ITS ---
[facility] Disclaimer: The information contained in this section may have been updated after the patient was seen, as this information can be updated by other users. Medical History Tobacco abuse counseling Pulmonary emphysema Multiple thyroid nodules Sinusitis Colon cancer screening Sinus pressure Acute left otitis media Tympanosclerosis, bilateral Tobacco abuse Hyperthyroidism Swollen lymph nodes Otalgia of left ear Bilateral otitis media Depression Hypertension Vitamin D deficiency Surgical History History of section Family History Other Family history of cancer Social History (Updated 05/15/25 @ 10:13 by Chiquita Vasquez RN) Smoking Status: Current every day smoker tobacco type: cigarettes packs per day: 1 alcohol intake: never substance use type: denies use current occupational status: retired Travel in the last 8 weeks?: None Have you lived/traveled outside [place] in past 30 days?: No Contact w/someone who lives/traveled outside US past 30 days?: No Exposure to someone with infectious disease in past 14 days?: No Do you have a fever (greater than 100.4 F or 38 C)?: No Have you tested positive for COVID-19?: No Exposed to someone with COVID-19 in past 14 days?: No Do you have a sore throat?: No Do you have a cough?: No Do you have any weakness?: No Are you experiencing any nausea/vomitting?: No Do you have any diarrhea?: No Are you experiencing any unusual bleeding?: No Do you have any muscle aches/pain?: No Do you have any abdominal pain?: No Are you experiencing loss of taste or smell?: No [facility] Anesthesia Checklist Patient Identification Patient Identification: Verbal (Name & ) Structural Data Admitted From: Home Planned Operative Procedure/s: bronchoscopy Consent for Planned Operative Procedure(s) Verified: Yes NPO Status Verified Time NPO: 00:00 Additional verifications Anesthesia Reactions: No Hx Blood Transfusions: No Blood Transfusion Reaction: No Airway Assessment Mallampati Score:: Class II C-Spine Mobility Assessed: Yes TMJ Mobility Assessed: Yes Dentition: Edentulous Neurological Assessment Level of Consciousness: Awake, Alert and Appropriate Anesthesia Plan Anesthesia Risk discussed: Yes Anesthesia Plan: Verified ASA Class: III Anesthesia Type: General
--- NOTE | 2025-05-15 15:01 | EXP.BRONCH.N ---
Procedure: Date: 05/15/25 Patient Date of :: 1955 Procedure Performed:: Navigational bronchoscopy, airway examination, bronchoalveolar lavage, trans bronchial fine-needle aspiration, trans bronchial brushing and trans bronchial biopsy of lung nodule, endobronchial biopsy and endobronchial ultrasound-guided lymph node surveillance and fine-needle aspiration of lymph node. Indications:: Lung nodule and lymphadenopathy Performing Provider:: Helen Barton MD Referring Provider:: Dr: Susie Goodman APRN Sedation:: General anesthesia Procedure:: Navigational bronchoscopy, airway examination, bronchoalveolar lavage, trans bronchial fine-needle aspiration, trans bronchial brushing and trans bronchial biopsy of lung nodule, endobronchial biopsy and endobronchial ultrasound-guided lymph node surveillance and fine-needle aspiration of lymph node. A clean diagnostic bronchoscopy was advanced to the ET tube and airway examination was performed. Airways appeared grossly normal, no evidence of mucoid secretions, mucous plugging active bleeding/old blood clots noted. Moderate amount of secretions were noted. Diagnostic bronchoscopy was retracted, and Robotic Ion bronchoscopy was introduced through the ET tube. Patient images were previously uploaded into the ION Plan point software. The target nodule sampling was planned, and the pathway was mapped. The nodule measured 28mm in long axis. Following airway examination, airway registration was performed using shape sensing robot assisted bronchoscopy (SSRAB). We were 12 mm from the near edge of the nodule in the RLL . A Radial EBUS - [id number] was inserted to confirm the location which was tangential. Under fluoroscopy guidance the samples were taken. Sampling: A flexion 21 needle was used to perform FNA of the RLL Lung nodule. A total of 4 passes were made. This was followed by passes with a needle brush, 2 passes was made. Transbronchial forceps biopsies were then performed with a total of 8 biopsies were performed in the RLLLung nodule. Bronchoalveolar lavage was performed with instillation of [15] cc normal saline with return of 5 cc back. Samples from transbronchial FNA, brush, forceps biopsy and bronchoalveolar lavage were sent in CytoLyt for cytopathologic examination. Ion robotic bronchoscopy was retracted and EBUS bronchoscope was introduced for lymph node surveillance. Five passes were taken using 21 gauge needing at lymph node stations 4l, 7, 10L and 10R. Resultant lymph node FNA sample were labelled separately for each lymph node station and were sent in CytoLyt for cytopathologic examination. Findings:: Please see the procedure note Recommendations:: Postoperative bronchoscopy instructions Follow in pulmonary clinic in 5 to 7 days Complications:: No acute immediate complications Estimated blood obtained (mL): 5
--- NOTE | 2025-05-15 15:08 | XR_ITS ---
FINAL REPORT CLINICAL HISTORY: ION 5.9 min 37.14 mGy FINDINGS: FLUOROSCOPY WITH FILMS Fluoroscopic guidance was provided under the direction of the clinical service for intraoperative procedure. Digital spot radiographs show bronchoscope projecting over the left hilar region. Radiation dose, air,: 37.14 mGy Authenticated and ERN
--- NOTE | 2025-05-15 15:16 | XR_ITS ---
FINAL REPORT CLINICAL HISTORY: post bronch ION FINDINGS: A portable view of the chest was obtained. Cardiac and mediastinal silhouettes are within normal limits. The known right lower lobe spiculated nodule is not well-seen on portable view. Increased interstitial markings are likely chronic.. There is no pleural effusion or pneumothorax. IMPRESSION: Known right lower lobe spiculated nodule not well-seen. Increased interstitial markings are likely chronic. Reviewed, Interpreted and Dictated by Isaura Jara MD Transcribed by Kae Osorio Authenticated and [facility]
--- NOTE | 2025-05-15 15:16 | EXP.ANES.I ---
[facility] Anesthesia Record Part I Anesthesia Record I Intake, IV Amount: 950 Hydration: Adequate Estimated blood loss (mL): 5 Urine output (mL): 0 Blood Products used (#): none Blood Pressure: 138/73 SaO2: 92 Pulse Rate: 86 Airway Patency: Patent Respiratory Rate: 14 Temperature: 97.9 F Patient is:: Drowsy and Stable Stable to PACU at:: 15:09
[2025-05-15] MEDS: IPRATROPIUM/ALBUTEROL 3 ML NEB IH (16:00)
--- NOTE | 2025-05-15 16:49 | SUR.PHASEII ---
1649- patient remains in recovery at this time due to chest x-ray not being read yet. continuing to monitor vital signs.
--- NOTE | 2025-05-16 12:06 | P.PNANES_ITS ---
[facility] Anesthesia Record Part II Anesthesia Record Part II Discharge Time: 16:10 Destination: Surgical Day Care (OP Surgery) PACU nurse assessment reviewed?: Yes Patient Condition:: Good Anesthesia Complications:: None Swallowing reflex intact?: Yes Airway Patency: Patent Cyanosis?: No Blood Pressure: 125/64 SaO2: 92 Respiratory Rate: 16 Pulse Rate: 80 Temperature: 97.1 F Mental Status: Alert & Oriented Pain level:: 0 Nausea and/or vomitting:: None Intake, IV Amount: 0 Hydration: Adequate
[2025-05-16 12:09] VITALS: BP 125/64; PULSE 80; RESP 16; TEMP 36.2; O2SAT 92
== END 2025-05-15 17:04 | disposition home or self-care (01) ==
PROVIDERS: PCP Family Medicine; Visit Provider Internal Medicine Pulmonary Disease
PROC: (CPT 31623; principal; 2025-05-15 11:30)
DX: C34.31 Malignant neoplasm of lower lobe, right bronchus or lung (principal); J43.9 Emphysema, unspecified; F17.210 Nicotine dependence, cigarettes, uncomplicated
CPT/HCPCS: 31623; 31624; 31627; 31628; 31629; 31653; 31654; 71045; 88112; 88173; 88305; 88341; 88342; 88360; J1100; J2003; J2250; J2405; J2704; J3010; J7120

== ENCOUNTER 2025-06-05 13:38 | Outpatient (CLI) | payer MEDICARE, SELFPAY ==
[2025-06-05] MEDS: ALBUTEROL 0.083% 2.5 MG/3 ML NEB IH (14:38)
== END 2025-06-05 23:59 | disposition home or self-care (01) ==
LOC: RT 13:39
PROVIDERS: PCP Family Medicine; Visit Provider Internal Medicine Pulmonary Disease
DX: J44.9 Chronic obstructive pulmonary disease, unspecified (principal); R94.2 Abnormal results of pulmonary function studies
CPT/HCPCS: 94060; 94618; 94726; 94729

== ENCOUNTER 2025-06-30 10:21 | Outpatient (CLI) | payer MEDICARE, SELFPAY ==
--- OUTSIDE RECORDS SUMMARY | 2025-06-29 10:47 | XMS_ITS | Continuity of Care Document ---
Author Organization [facility] Phone Care Team Providers Care Home Care And Home Health Aides Teacher Name Role Phone TAMIKATANIYA RUSSELL Unavailable Unavailable TAMIKA, TANIYA Admitting Unavailable TAMIKA, TANIYA Primary Care Unavailable TAMIKA, TANIYA Primary Attending Unavailable TREATMENT PLAN DISCHARGE MEDICATIONS Status RXNORM Medication Dose Route Frequency Dates Comments U pdated By Patient discharge medication information is not available. PATIENT OPEN ORDERS Code System Descripti on Frequency Occurrenc es Priority Category [place] [id number] LOINC Head to thigh PET ONE TIME 0 Routine June 29, 2025 2:02:00 PM [facility] TAMIKA TANIYA [id number] on June 29, 2025 2:03:00 PM [facility] SCHEDULED PROCEDURES Code System Description Status Scheduled Date Upd ated By Patient scheduled procedure information is not available. MEDICATIONS HOME MEDICATIONS Status RXNORM NDC Medication Dose Route Frequency Dates Comments Reported By Updated By Drug Treatment Unknown DISCHARGE MEDICATIONS Status RXNORM NDC Medication Dose Route Frequency Dates Dis pense Data Comments Physician Updated By No Discharge Medication Info rmation Available INPATIENT MEDICATIONS Status RXNORM NDC Medication Dose Route Frequency Rat e Quantity Dates Indication Dispense Data Comments Physician Updated By No Inpatient Medication Info rmation Available SOCIAL HISTORY SOCIAL HISTORY - Smoking Status SNOMED-CT Social History Element Description Effective Dates Offered Cessation Comment Updated By [id number] Smoking Status Unknown If Ever Smoked SOCIAL HISTORY - Gender Sex: Female SOCIAL HISTORY - Status : status i nformation is not available Intention in Next Year: intention information is not available SOCIAL HISTORY - Assessments Code System Description Status Date Value of Assessment Updated By Comment Assessment Information is no t available SOCIAL HISTORY - [place] Affiliation [place] information is not av ailable SOCIAL HISTORY - Legal Sex Legal Sex information is not available SOCIAL HISTORY - Sexual Behavior Sexual Orientation Gender Identity SNOMED-CT Description SNO MED -CT Description Activity Level No of Partners Partner Type UpdatedBy Information is not available SOCIAL HISTORY - Occupation Occupation information is no t available HEALTH CONCERNS Problems Concern Status Health Concern problem infor mation not available. Smoking Status Status Years Used Consumed packs p er day Health Concern smoking histo ry information not available. Family History Concern Status Health Concern family histor y information not available. ENCOUNTERS ENCOUNTER INFORMATION Reason for Visit PET SCAN Admission June 29, 2025 1:47:00 PM [place] [id number] [facility] [id number] Discharge June 29, 2025 1:47:00 PM [facility] DISCHARGED TO HOME OR SELF CARE ENCOUNTER DIAGNOSES Notes information is not maurisio ilable. Code System Diagnosis Onset Date Diagnosis information is not available. ABSTRACT DIAGNOSES Code System Diagnosis Updated By Abatement Date R91.8 ICD10 OTHER NONSPECIFI C ABNORMAL FINDING OF LUNG FIELD [id number] on May 21, 2025 2:57:54 PM [facility] CARE TEAM Care [facility] Aides Teacher Role TANIYA LUNDBERG Referring TANIYA LUNDBERG Admitting TANIYA LUNDBERG Primary Care TANIYA LUNDBERG Primary Attending CARE TEAM CARE biochemistry technologist Role on Team Location Telecom Status Start Date End Jim e Updated By TAMIKA MONAHAN PCP normal Septembe r 2024 2:57:55 PM [place] June 29, 2025 1:47:00 PM [place] [id number] on May 21, 2025 2:57:55 PM [place] TAMIKA MONAHAN Referring normal Septembe r 2024 2:57:54 PM [place] June 29, 2025 1:47:00 PM [place] [id number] on May 21, 2025 2:57:55 PM [facility] TAMIKA MONAHAN Attending normal Septembe r 2024 2:57:54 PM [place] June 29, 2025 1:47:00 PM [place] [id number] on May 21, 2025 2:57:55 PM [place] TAMIKA MONAHAN Admitting normal Septembe r 2024 2:57:54 PM [place] June 29, 2025 1:47:00 PM [place] [id number] on May 21, 2025 2:57:55 PM UTC
--- NOTE | 2025-06-30 10:30 | MR_ITS ---
FINAL REPORT CLINICAL HISTORY: Lung mass. diagnosed lung cancer 1 month ago COMPARISON: None FINDINGS: Multiplanar MR imaging of the brain was performed without and with contrast. There is no evidence of intracranial hemorrhage or mass. No abnormal extra-axial fluid collection is seen. There is no evidence of shift of the midline structures. There are [id number] scattered foci of abnormal signal in the deep white matter which are nonspecific and probably related to chronic ischemia. The posterior fossa and brainstem have an unremarkable appearance. No area of abnormal restricted diffusion is identified. Post infusion images demonstrate no intra-axial enhancing masses. No evidence of metastases. Normal major vessel vascular flow voids are noted. IMPRESSION: No acute intracranial abnormality identified. [id number] changes of chronic microvascular ischemia. Reviewed, Interpreted and Dictated by Ar Sin MD Transcribed by Adele Mao Authenticated and . [facility]
--- OUTSIDE RECORDS SUMMARY | 2025-06-30 10:36 | XMS_ITS | Data Portability ---
Author Organization [facility] Address [address] [place] [address] Assessment No assessment recorded. Plan of Treatment Reminders Order Date Submit Date Provider Last Modified By Organization Details Last Modified Time Details Appointments None recorded. Lab HbA1c (hemoglobin A1c), blood 2022 [facility], [address], [place], [address], 12:33:31 Referral endocrinolo gy referral - over active thyroid and thyroid nodule 2022 [facility], [address], [place], [address], 4 14:56:39 Procedures None recorded. Surgeries None recorded. Imaging None recorded. Medication Orders Flonase Allergy Relief 50 mcg/actuati on nasal spray,suspe nsion 2022 023 [facility] 846, [address], [address], 3 11:07:10 Patient TargetsNo targets recorded. Patient Instructions Encounter Date Encounter Id Patient Instructions Last Modified By Organization Details Last Modified Time 06/28/2023 [id number] learning about healthy weight [facility] Not available 06/28/2023 12:33:29 body mass index: care instructions [facility] Not available 06/28/2023 12:33:29 Reason for Referral Endocrinology Referral for H yperthyroidism over active thyroid and thyroid nodule Referring Physician: Nelsy Barrientos, Family Medicine, Encounter Date: 07/03/2023 Results Created Date Observation Date Name Description Value Unit Range Abnormal Flag Note LastModifiedBy Organization Detail LastModifiedTime 06/28/2006/28/2023 HbA1c (hemo globi n A1c), blood HbA1C 5.2 % Not Available [address], [place], [address], 06/28/2023 12:29:33 06/28/2002/20/2023 MAMMO , tomos ynthe sis, bilat eral No observ ation record ed. [facility] [address], [place], [address], 06/28/2023 14:52:05 Result Notes None recorded. Problems Name Problem SNOMED Code Status Onset Date Resolution Date Notes Provider Name and Address Organization Details Recorded Time Hypertensive disorder 09134054 Active 2022 Deliaartemiowesley Perrymichellepaty, RADIOLOGY AIDE [address], [place], [address], [place] - [facility] 11:40:30 Hypercholestero lemia 86901574 Active 2022 Nelsy Barrientos, RADIOLOGY AIDE [address], [place], [address], [place] - [facility] 11:40:28 Problem Notes None recorded. Procedures Surgical History Date Name Laterality Status Provider Name and Address Organization Details Recorded Time 3 Colposcopy completed Kylee Stears [place] - [facility] 06/28/2023 10:55:46 3 Date of Last Mammogram completed Kylee Stears [place] - [facility] 06/28/2023 14:49:41 7 Caesarean Section completed Kylee Stears [place] - [facility] 06/28/2023 10:55:48 biopsy of thyroid completed Kylee Stears [place] - [facility] 06/28/2023 11:08:57 Imaging Results None recorded. Procedure Notes None recorded. Medical Equipment None Reported. Allergies No known drug allergies Medications Name Sig Start Date Stop Date Status Note LastModified by Organization Details LastModified Time atorvastati n 40 mg tablet TAKE 1 TABLET BY MOUTH ONCE DAILY active Not Available Not Available No t Available atorvastati n 20 mg tablet TAKE 1 TABLET BY MOUTH AT BEDTIME 06/28 completed Not Available Not Available Not Available prednisone 20 mg tablet 06/28 completed Not Available Not Available Not Available amlodipine 5 mg tablet TAKE 1 TABLET BY MOUTH ONCE DAILY 06/28 completed Not Available Not Available Not Available amoxicillin 875 mg tablet TAKE 1 TABLET BY MOUTH TWICE DAILY 06/28 completed Not Available Not Available Not Available amlodipine 10 mg tablet TAKE 1 TABLET BY MOUTH ONCE DAILY active Not Available Not Available No t Available paroxetine 30 mg tablet TAKE 1 TABLET BY MOUTH ONCE DAILY active Not Available Not Available No t Available montelukast 10 mg tablet TAKE 1 TABLET BY MOUTH ONCE DAILY active Not Available Not Available No t Available methylpredn isolone 4 mg tablets in a dose pack TAKE BY MOUTH DIRECTED ON INSIDE OF PACKAGE 06/28 completed Not Available Not Available Not Available cefdinir 300 mg capsule 06/28 completed Not Available Not Available Not Available losartan 100 mg tablet TAKE 1 TABLET BY MOUTH ONCE DAILY active Not Available Not Available No t Available amoxicillin 500 mg-potassiu m clavulanate 125 mg tablet TAKE 1 TABLET BY MOUTH TWICE DAILY FOR 10 DAYS 06/28 completed Not Available Not Available Not Available Flonase Allergy Relief 50 mcg/actuati on nasal spray,suspe nsion [place] 1 spray every day by intranasa l route. 2022 active Not Available Not Available Not Avai lable Vitals Date Recorded Body weight Body mass index (BMI) Body height Body temperature Respiratory rate Oxygen saturation Oxygen saturation in Arterial blood by Pulse oximetry Heart rate Systolic And Diastolic Provider Name and Address Organization Details Last Updated DateTime 3 65996.4 2 g 17.5 kg/m2 162.56 cm 97.6 [degF] 18 /min 95 % 95 % 74 /min 134/72 mm[Hg] Kylee Stears [place] - [facility] 3 11:03:14 Date Recorded Body height Body mass index (BMI) Body weight Body temperature Heart rate Oxygen saturation Oxygen saturation in Arterial blood by Pulse oximetry Respiratory rate Pain severity - 0-10 verbal numeric rating [Score] - Reported Systolic And Diastolic Provider Name and Address Organization Details Last Updated DateTime 162.56 cm 17.7 kg/m2 09340.7 1 g 97.8 [degF] 78 /min 93 % 93 % 20 /min 0 128/70 mm[Hg] Deb Brady [place] - [facility] 10:50:53 Social History Question Answer Notes LastModified by Organizat ion Details LastModified Time Tobacco Smoking Status Current Every Day Smoker Kylee Dm [place], [place] - [facility] 06/28/2023 10:55:47 Do You Have An Advance Directive? No Information not available 06/28/2023 Are You Blind Or Do You Have Difficulty Seeing? No Information not available 06/28/2023 Is Blood Transfusion Acceptable In An Emergency? Yes Information not available 06/28/2023 What Is Your Level Of Caffeine Consumption? Heavy Information not available 06/28/2023 How Much Tobacco Do You Chew? None Information not available 06/28/2023 Are You Deaf Or Do You Have Serious Difficulty Hearing? No Information not available 06/28/2023 What Type Of Diet Are You Following? REGULAR Information not available 06/28/2023 What Is The Highest Grade Or Level Of School You Have Completed Or The Highest Degree You Have Received? [id number] Information not available 06/28/2023 Have There Been Any Changes To Your Family Or Social Situation? No Information no t available 06/28/2023 What Is The Fluoride Status Of Your Home? Unknown Information not available 06/28/2023 How Many Years Have You Used Illicit Or Recreational Drugs? 0 Information not available 06/28/2023 Do You Have A Medical Power Of Director Quality Assurance? No Information not available 06/28/2023 What Was The Date Of Your Most Recent Tobacco Screening? 06/28/2023 Information not available 06/28/2023 How Many Children Do You Have? 2 Information not available 06/28/2023 What Is Your Current Pack Years? 30ormorepacky ears Information not available 06/28/2023 Do You Use Protection Against STDs? Always Information not available 06/28/2023 What Is Your Relationship Status? Information not available 06/28/2023 Do You Use Your Seat Belt Or Car Seat Routinely? Yes Information not available 06/28/2023 Are You Sexually Active? No Information not available 06/28/2023 Do You Have Smoke And Carbon Monoxide Detectors In Your Home? Yes Information not available 06/28/2023 At What Age Did You Start Smoking Tobacco? 17 Information not available 06/28/2023 Are You Passively Exposed To Smoke? Yes Information no t available 06/28/2023 How Much Tobacco Do You Smoke? 1 PPD Information not available 06/28/2023 Do You Use Sunscreen Routinely? No Information not available 06/28/2023 How Many Years Have You Smoked Tobacco? 50 Information not available 06/28/2023 Do You Have Difficulty Walking Or Climbing Stairs? No Information not available 06/28/2023 Sex: Female Functional Status Question Answer Note LastModified by Organizat ion Details LastModified Time Do you or have you ever used smokeless tobacco? Never used smokeless tobacco Information not available 06/28/2023 Are you currently employed? Yes Information not available 06/28/2023 Do you have transportation difficulties? No Information not available 06/28/2023 Are you able to care for yourself independently? Yes Information not available 06/28/2023 Do you have difficulty dressing, bathing, grooming, or toileting? No Information not available 06/28/2023 Do you or have you ever used e-cigarettes or vape? Never used electronic cigarettes Information not available 06/28/2023 What is your exercise level? Moderate Information not available 06/28/2023 Do you use any illicit or recreational drugs? No Information not available 06/28/2023 Do you or have you ever used any other forms of tobacco or nicotine? No Information not available 06/28/2023 What is your level of alcohol consumption? None Information not available 06/28/2023 Are you able to walk independently without assistance or assistive devices? YESWOREST Information not available 06/28/2023 Do you have difficulty doing errands alone? No Information not available 06/28/2023 What is your occupation? works with [employer] in [place] Information not available 06/28/2023 Mental Status Question Answer Note LastModified by Organizat ion Details LastModified Time Do you feel stressed (tense, restless, nervous, or anxious, or unable to sleep at night)? [id number] Information not available 06/28/2023 Do you have difficulty concentrating, remembering or making decisions? No Information no t available 06/28/2023 Family History Relationship Description Onset Age of this Age Resolved Age Notes LastModified by Organization Details LastModified Time Mother Arthritis bstears Not available 06/28/2023 10:55:46 Unspecified Relation Asthma bstears Not available 10:55:46 Maternal Grandmother Malignant neoplasm of breast bstears Not available 2022 10:55:46 Daughter Malignant neoplasm of cervix uteri bstears Not available 10:55:46 Daughter Malignant neoplasm of ovary bstears Not available 2022 10:55:46 Father Harmful pattern of use of alcohol bstears Not available 2022 10:55:46 Medical History Condition Response Allergies/Hayfever Y Anxiety Disorder Y Arthritis Y Hypercholesterolemia Y Headaches Y Hypertension Y Depression Y Gynecological History Statement/Question Response Abnormal Pap N Date of Last Mammogram 02/20/2023 Flow Light Date of LMP 06/13/2000 Post Menopausal Bleeding Y STIs/STDs N Colposcopy 05/26/2023 HPV Vaccine N Duration of Flow (days) 0 Current Control Method None Age at Menarche 13 Age at First Child 19 If Post Menopausal, Age at Menopause 55 Date of Last Colonoscopy Frequency of Cycle (Q days) 0 Most Recent Bone Density Sexually Active? N Menses Monthly N Date of Last Pap Smear Hormone Replacement Therapy N Obstetrics History GPAL:G 0 P 0 0 0 0 Immunizations Vaccine Type Date Status Note Provider Nam e and Address Organization Details Recorded Time Influenza, high-dose, quadrivalent, PF 3 completed Deb Abreu null, [place] - [facility] 07/03/2023 10:51:09 COVID-19, mRNA, LNP-S, PF, 30 mcg/0.3 mL dose 1 completed Deb Abreu null, [facility] 07/03/2023 10:51:09 COVID-19, mRNA, LNP-S, PF, 30 mcg/0.3 mL dose 1 completed Deb Abreu [place], [place] - [facility] 07/03/2023 10:51:09 COVID-19, mRNA, LNP-S, PF, 30 mcg/0.3 mL dose 1 completed Deb Abreu null, [facility] 07/03/2023 10:51:09 Pneumococcal conjugate PCV20, polysaccharide PBH814 conjugate, adjuvant, PF 3 completed Deb Abreu null, [facility] 07/03/2023 10:51:09 RSV, recombinant, protein subunit RSVpreF, adjuvant reconstituted, 0.5 mL, PF 3 completed Deb Abreu null, [facility] 07/03/2023 10:51:09 COVID-19, mRNA, LNP-S, PF, 50 mcg/0.5 mL 3 completed Deb Abreu null, [facility] 07/03/2023 10:51:09 pneumococcal polysaccharide PPV23 7 completed Deb Abreu null, [facility] 07/03/2023 10:51:09 Tdap 6 completed Deb Abre[place] null, [place] - [facility] 07/03/2023 10:51:09 zoster live 7 completed Deb Abre[place] - [facility] 07/03/2023 10:51:09 Influenza, split virus, trivalent, PF 6 completed Deb [place]bre[place], [place] - [facility] 07/03/2023 10:51:09 Td (adult), 5 Lf tetanus toxoid, preservative free, adsorbed 7 completed Deb Abre[place] - [facility] 07/03/2023 10:51:09 Influenza, split virus, quadrivalent, PF 7 completed [place] - [facility] 07/03/2023 10:51:09 Influenza, split virus, quadrivalent, PF completed Deb Abreu [place], [place] - [facility] 07/03/2023 10:51:09 Past Encounters Encounter ID Performer Location Encounter Start Date Encounter Closed Date Diagnosis/Indication Diagnosis SNOMED-CT Code Diagnosis ICD10 Code Diagnosis IMO Codes Diagnosis Note [id number] Nelsy Barrientos APRN [address] [address] 06/28/2023 10:43:13 06/28/2023 13:30:18 Body mass index less than 20 468985128 Z68.1 17.5 Underweight 516647656 R6 3.6 Cramp in foot 761068858 R25.2 Hypoglycemia 350240968 E 16.2 will bring back in 1 week after obtaining labs and test from old pcp and discuss planwill order antonio 2 due to evidence of hypoglycem ia [id number] [facility] [address] [address] 07/03/2023 10:37:10 07/03/2023 11:06:20 Hyperthyroidism 47419431 E05.90 discussed labs and test results with pt and family Pain of ear 411180112 H9 2.09 Health Concerns Section Related Observation LastModified by Organization Detai ls LastModified Time None Recorded Concern Status LastModified by Organization Details LastModified Time None Recorded Advance Directives Directive N: Payers Insurance Date Sequence Insurance Name Policy Number Policy Ro Covered Member ID Ro Member ID Guarantor Name 02/22/2024 2 [place] Kae Grullon [id number] Kae Grullon 02/22/2024 1 [employer] (MEDICARE REPLACEMENT /ADVANTAGE - HMO) [id number] Kae Grullon [id number] Kae Grullon 02/22/2024 1 [employer] (MEDICARE REPLACEMENT /ADVANTAGE - PPO) [id number] Kae Grullon [id number] Kae Grullon 02/22/2024 [place] Kae Grullon [id number] Kae Grullon Notes Date Note Type Note Provider Name and Address Organization Details Recorded Time 06/28/2023 text/html Kae is a 67 year old female who presents to the office today for a check upshe has concerns of thyroid problem-states she has had biopsy previously at [facility] has concerns of diabetes- states she is unsure if she is diabetic. pt states she had labs 2 weeks ago and the only thing they told her was abnormal was her glucose and it was 50. pt states she feels tired, her feet cramps,pain in neck under left ear. pt states she smokes 1ppd for over 16 yrs. mom had brain ca and grandmother had breast cancer. Nelsy Barrientos APRN [address], [place], [address], [facility] - [facility] 06/28/2023 13:45:48 07/03/2023 text/html 67 yr old female presents to follow up from last visit. Her left ear is also painful. pt states she is still feeling tired, mercado and muscle cramps. Nelsy Barrientos APRN [address], [place], [address], [facility] - [facility] 07/03/2023 11:09:42 OBGyn Episode No OBEpisode recorded.
[2025-06-30 10:53] LABS: Blood Urea Nitrogen 8 mg/dl (7-17); Creatinine,Serum 0.70 mg/dl (0.52-1.04); Estimated Glomerular Filt Rate 83 ml/min (>60); GFR (African American) 101 ML/MIN (>60)
[2025-06-30] MEDS: SODIUM CHLORIDE 0.9% 10ML SYR (RAD ONLY) 10 ML IV (11:26)
[2025-06-30] MEDS: GADOTERIDOL INJ 10ML SYRINGE 10 ML IV (11:26)
== END 2025-06-30 23:59 | disposition home or self-care (01) ==
LOC: RAD 10:22
PROVIDERS: PCP Family Medicine; Visit Provider Internal Medicine Medical Oncology
DX: I67.82 Cerebral ischemia (principal); C34.90 Malignant neoplasm of unspecified part of unspecified bronchus or lung; R91.8 Other nonspecific abnormal finding of lung field
CPT/HCPCS: 36415; 70553; 82565; 84520; A9576